=== PATIENT | female | born 1995 | race Two or more races ===

== ENCOUNTER → 2024-02-02 | Outpatient (CLI) | payer MEDICAID, SELFPAY ==
--- NOTE | 2024-02-02 15:41 | XR_ITS ---
Examination: Hand, right 3 views Technique: Hand AP, oblique, lateral 3 views Date and time of exam: February 02, 2024 at 1719 hours Comparison November 25, 2023 INDICATIONS: History foreign body in the right hand with pain 3 months FINDINGS: 8mm opaque foreign body again noted in the soft tissue palmar hand between the fourth and fifth metacarpals No fracture No cortical bone destruction IMPRESSION: Stable position opaque foreign body compared with November 25, 2023
== END | disposition home or self-care (01) ==
PROVIDERS: Referring Provider Nurse Practitioner Gerontology; Visit Provider Nurse Practitioner Gerontology
DX: S60.551A Superficial foreign body of right hand, initial encounter (principal); X58.XXXA Exposure to other specified factors, initial encounter
CPT/HCPCS: 73130